=== PATIENT | female | born 1970 | race Caucasian/White ===

== ENCOUNTER 2020-11-21 14:31 | Outpatient (CLI) | payer OTHER, SELFPAY | END 2020-11-21 14:32 | disposition home or self-care (01) | LOC: ANHCOVIDVC 14:32 | DX: Z23 Encounter for immunization (principal) | CPT/HCPCS: 0001A; 91300 ==

== ENCOUNTER 2020-12-12 14:29 | Outpatient (CLI) | payer OTHER, SELFPAY | END 2020-12-12 14:30 | disposition home or self-care (01) | LOC: ANHCOVIDVC 14:30 | DX: Z23 Encounter for immunization (principal) | CPT/HCPCS: 0002A; 91300 ==